=== PATIENT | male | born 1965 | race Caucasian/White ===

== ENCOUNTER 2016-07-24 21:13 | Emergency (ER) | payer OTHER, BC ==
[2016-07-24 21:22] VITALS: BP 153/92; PULSE 75; TEMP 97.9; BMI 41.1
--- NOTE | 2016-07-24 21:22 | PDOC ---
History of Present Illness - General Chief Complaint: Injury Stated Complaint: BACK PAIN Time Seen by Provider: 07/24/16 21:20 History Source: Patient Exam Limitations: No Limitations - History of Present Illness Initial Comments: 07/24/16 22:09 This is a 51-year-old male who comes in complaining of severe low back pain. Patient was approximate 5 feet up on a ladder when the ladder came off the roof and went down for work. Patient fell forward while on the ladder and rolling to the ground. Patient said post hitting the ground he was experiencing some mild pain in his knees bilateral, his shoulders bilateral but more severe pain in his lumbar spine area. Patient went to another facility yesterday and had x- rays of his knees shoulder and lumbar spine and was told they were all negative patient was given 2 Percocets at the other facility and discharged home and told to take ibuprofen. Patient has been taking ibuprofen and now returns complaining of severe worsening pain with some radiation to his left thigh area. Patient denies any change in his urinary ability however says that he did not have a bowel movement today but attributes it to the Percocet he was given yesterday. Patient did ambulate to the emergency room. PAST MEDICAL HISTORY: no significant history PAST SURGICAL HISTORY: no significant history FAMILY HISTORY: no pertinant history SOCIAL HISTORY: Pt lives with family and is employed. MEDICATIONS: reviewed ALLERGIES: As per nursing notes Review of Systems General: No fevers or chills, no weakness, no weight loss HEENT: No change in vision. No sore throat,. No ear pain CardioVascular: No chest pain or shortness of breath Respiratory:No cough, or wheezing. Gastrointestinal: no nausea, vomitting, diarrhea or constipation, No rectal bleeding Genitourinary: No dysuria, hematuria, or frequency Musculoskeletal: Back pain. Psychiatric: nor depression Skin: No rashes or easy bruising Endocrine: no increased thirst or abnormal weight change Allergic: no skin or latex allergy All other systems reviewed and normal GENERAL: The patient is awake, alert, and fully oriented, in no acute distress. HEAD: Normal with no signs of trauma. EYES: Pupils equal, round and reactive to light, extraocular movements intact, sclera anicteric, conjunctiva clear. EXTREMITIES: Normal range of motion, no edema. BACK: There is tenderness on palpation mid lumbar spine. Straight leg test is positive bilateral with approximately 45. NEUROLOGICAL: Normal speech, grossly intact, antalgic gait, sensation and motor of bilateral lower extremities is intact. PSYCH: Normal mood, normal affect. SKIN: Warm, Dry, normal turgor, no rashes or lesions noted. 07/24/16 23:14 CAT scan report Shows probable new compression fractures L2 and L4 with disc bulge at L3-L4, L4- L5, L5-S1. Assessment and plan: This is a 51-year-old male who comes in complaining of moderately severe back pain secondary to a fall. Patient was imaged with plain films that were read as negative so a CAT scan was done here in the emergency room that does reveal new probable compression fractures at L2 and L4. With disc bulge L3-S1. Patient is neurologically intact but was told if he has any new neurological symptoms or difficulty with not being able to control his urine or stools he should come to the emergency room or see his orthopedist immediately. Patient given Toradol here in the emergency room and a prescription for Percocet. Patient referred to orthopedist for follow-up. Past History - Past Medical History Allergies/Adverse Reactions: Allergies Allergy/AdvReac Type Severity Reaction Status Date / Time No Known Allergies Allergy Unverified 01/18/13 17:13 Home Medications: Ambulatory Orders Ibuprofen [Advil -] 400 mg PO QID 07/24/16 Oxycodone HCl/Acetaminophen [Percocet 5-325 mg Tablet] 1 - 2 tab PO Q4H #20 tablet MDD 8 07/24/16 *DC/Admit/Observation/Transfer Diagnosis at time of Disposition: Compression fracture of lumbar vertebra - Discharge Dispostion Disposition: HOME Condition at time of disposition: Stable - Patient Instructions Printed Discharge Instructions: Vertebral Compression Fracture Additional Instructions: For the pain you can take Percocet one or 2 tablets every 4-6 hours as needed. I am only able to give you a limited number of Percocets so it is important that you follow-up with the orthopedist for more Percocet if you need more. In addition to the Percocet take ibuprofen 3 tablets 3 times a day with food don 't take on an empty stomach. If you develop any inability to control your urine or bowel movements it is important that you return the emergency room immediately or see your doctor. Return to the emergency department immediately with ANY new, persistent or worsening symptoms. Continue any medications as previously prescribed by your physician. You should follow up with your primary doctor as soon as possible regarding today's emergency department visit. . Please make sure your doctor reviews the results of your emergency evaluation. Thank you for coming to the Emergency Department today for your care. It was a pleasure to see you today. Please note that your evaluation is INCOMPLETE until you follow-up with your doctor.
[2016-07-24] MEDS ORDERED: KETOROLAC TROMETHAMINE 60 MG/2 ML VIAL IM ONE (21:58)
[2016-07-24] MEDS ORDERED: KETOROLAC TROMETHAMINE 60 MG/2 ML VIAL ONE (22:05)
== END 2016-07-24 23:25 | disposition home or self-care (01) ==
LOC: FER 21:13
PROC: 3E0233Z Introduction of Anti-inflammatory into Muscle, Percutaneous Approach (ICD-10-PCS; principal; 2016-07-24)
DX: S32.009A Unspecified fracture of unspecified lumbar vertebra, initial encounter for closed fracture (principal); W11.XXXA Fall on and from ladder, initial encounter; Y93.89 Activity, other specified; Y92.9 Unspecified place or not applicable; Y99.0 Civilian activity done for income or pay
CPT/HCPCS: 72131-TC; 99282-25

== ENCOUNTER 2016-08-29 15:14 | Emergency (ER) | payer OTHER, BC ==
[2016-08-29 15:18] VITALS: BP 137/72; PULSE 80; TEMP 98.4; BMI 31.8
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
== END 2016-08-29 16:10 | disposition home or self-care (01) ==
LOC: FER 15:14
DX: V43.52XA Car driver injured in collision with other type car in traffic accident, initial encounter (principal); Y93.89 Activity, other specified; Y92.410 Unspecified street and highway as the place of occurrence of the external cause
CPT/HCPCS: 99282-25

== ENCOUNTER 2018-05-16 09:07 | Day surgery (SDC) | payer BC ==
[2018-05-13 10:01] VITALS: BMI 30.2
[2018-05-16] MEDS ORDERED: PROPOFOL 20 ML ONE ×2 (09:19)
[2018-05-16] MEDS ORDERED: LIDOCAINE HCL/PF 2% SDV 5ML VIAL ONE (09:19)
[2018-05-16 09:25] VITALS: TEMP 98
[2018-05-16 11:01] VITALS: BP 106/56; PULSE 68
== END 2018-05-16 10:45 | disposition home or self-care (01) ==
LOC: FASU-ENDO 09:07
PROVIDERS: ATTEND Internal Medicine Gastroenterology
PROC: 0DJD8ZZ Inspection of Lower Intestinal Tract, Via Natural or Artificial Opening Endoscopic (ICD-10-PCS; principal; 2018-05-16 09:59)
DX: Z12.11 Encounter for screening for malignant neoplasm of colon (principal)